=== PATIENT | female | born 1940 | race Caucasian/White ===

== ENCOUNTER → 2023-11-20 12:43 | Outpatient (REF) | payer OTHER, SELFPAY | LOC: WDC 12:43 | PROVIDERS: ATTENDING PHYSICIAN Family Medicine | DX: R92.30 Dense breasts, unspecified (principal) | CPT/HCPCS: 76641 ==

== ENCOUNTER → 2024-06-18 15:52 | Outpatient (REF) | payer OTHER, SELFPAY | LOC: HWRCS 15:52 | PROVIDERS: ATTENDING PHYSICIAN Internal Medicine; FAMILY PHYSICIAN Family Medicine | DX: I10 Essential (primary) hypertension (principal); I49.1 Atrial premature depolarization; I35.1 Nonrheumatic aortic (valve) insufficiency; I47.29 Other ventricular tachycardia; I47.10 Supraventricular tachycardia, unspecified | CPT/HCPCS: 93306 ==

== ENCOUNTER → 2024-12-16 07:07 | Outpatient (REF) | payer OTHER, SELFPAY | LOC: HWRCS 07:07 | PROVIDERS: ATTENDING PHYSICIAN Internal Medicine; FAMILY PHYSICIAN Family Medicine | DX: I49.1 Atrial premature depolarization (principal); I10 Essential (primary) hypertension; I35.1 Nonrheumatic aortic (valve) insufficiency; I47.29 Other ventricular tachycardia; I47.10 Supraventricular tachycardia, unspecified | CPT/HCPCS: 93306 ==

== ENCOUNTER → 2025-02-27 11:22 | Outpatient (REF) | payer OTHER, SELFPAY | LOC: HWRCS 11:22 | PROVIDERS: ATTENDING PHYSICIAN Internal Medicine; FAMILY PHYSICIAN Family Medicine | DX: I47.29 Other ventricular tachycardia (principal); I10 Essential (primary) hypertension; R94.31 Abnormal electrocardiogram [ECG] [EKG] | CPT/HCPCS: 78452; 93017; A9500; J2785 ==

== ENCOUNTER 2025-03-24 06:45 | Day surgery (SDC) | payer OTHER, SELFPAY ==
--- NOTE | 2025-03-24 09:08 | ITS.CL.IMPLP ---
[facility] Room Supervisor - Implant Loop
Implant Loop
Procedure Report:
Procedure: Insertion of Loop Recorder.
84 years old woman with syncope and negative exhaustive work up is recommended an ILR placement.
Date of the procedure: 03/24/25
Procedure Physician: Yeni Cronin MD [facility]
Indication: Syncope.
Description of the procedure:
Patient was brought to the holding area after informed consent was obtained from the patient. The time out was performed immediately before the procedure.
The left parasternal chest area was prepped and draped in sterile fashion with chlorhexidine prep x 3 times. Lidocaine 1% was injected subcutaneously for local anesthesia. The loop recorder was tunneled and then injected into the subcutaneous
tissue. The tunneling tool was removed leaving the loop recorder in place. The dermis was closed with steristrips and a pressure Tegaderm dressing was placed. There were no immediate complications.
Post procedure, the device was interrogated and showed good detectable P and R waves.
There were no immediate complications.
Device:
LINQII; Model: LNQ22; Serial #:[id number]
R wave amplitude: 0.46 mV
Final Programming:
Tachycardia Detection: >182 bpm for 16 beats
Bradycardia Detection: 30 bpm for 12 beats, Asystole for 5 seconds.
Atrial fibrillation detection: On with > 10 min duration
Conclusion:
Successful insertion of loop recorder.
Recommendation:
Routine post-insert loop care.
== END 2025-03-24 09:14 | disposition home or self-care (01) ==
LOC: CATH 06:45
PROVIDERS: ATTENDING PHYSICIAN Internal Medicine Cardiovascular Disease; FAMILY PHYSICIAN Family Medicine
DX: Z09 Encounter for follow-up examination after completed treatment for conditions other than malignant neoplasm (principal); R55 Syncope and collapse; I10 Essential (primary) hypertension; E78.00 Pure hypercholesterolemia, unspecified; Z79.899 Other long term (current) drug therapy; I47.29 Other ventricular tachycardia; I49.1 Atrial premature depolarization; R94.31 Abnormal electrocardiogram [ECG] [EKG]; I35.1 Nonrheumatic aortic (valve) insufficiency; I49.3 Ventricular premature depolarization; I47.10 Supraventricular tachycardia, unspecified
CPT/HCPCS: 33285; C1764

== ENCOUNTER → 2025-04-16 08:33 | Outpatient (REF) | payer OTHER, SELFPAY | LOC: HWRAD 08:33 | PROVIDERS: ATTENDING PHYSICIAN Family Medicine | DX: M81.0 Age-related osteoporosis without current pathological fracture (principal) | CPT/HCPCS: 77080 ==